=== PATIENT | female | born 1940 | race Hispanic/Latino ===

== ENCOUNTER → 2017-02-09 | Outpatient (CLI) | payer OTHER ==
[~2017-02-09] MED LIST: ACETAMINOPHEN325 M1 PO; ARTIFICIAL TEA1 EACH TOP; ASCORBIC ACID500 MG PO; CLONIDINE HCL0.1 MG PO; CYPROHEPTADINE H4 MG PO; DIPHENHYDRAMINE25 M2 PO; FEOSOL325 MG PO; FERROUS SULFAT325 MG PO; FUROSEMIDE40 MG PO; GLIPIZIDE5 MG PO; IPRATROPIU0.2 MG/1 M NEB; LACTULOSE20 GM/30 M PO; LEVALBUTER0.63 MG/3 NEB; LISINOPRIL2.5 MG PO; MECLIZINE HCL12.5 MG PO; NAPROXEN250 MG PO; NEOMYCIN SULFA500 MG PO; NIFEDIPINE ER30 M1 PO; NITRO-BID1 GM TOP; NOVOLOG100 UNIT/1; NYSTATIN1 EAC1 TOP; PEPCID20 MG PO; POTASSIUM CHLO10 ME1 PO; PROMACTA25 MG PO; PROMETHAZINE HC25 M1 PO; REMERON15 M1 PO; SPIRONOLACTONE25 MG PO; THIAMINE HCL100 MG PO; VITAMIN C500 M1 PO; ZINC OXIDE56.7 GM TOP
== END ==
LOC: NPA 12:00
DX: R69 Illness, unspecified (principal)

== ENCOUNTER → 2017-02-11 | Outpatient (CLI) | payer OTHER ==
[2017-02-12 13:11] LABS: BACTERIA,URINE RARE /HPF; BILIRUBIN,URINE NEGATIVE (NEGATIVE); CLARITY,URINE CLEAR (CLEAR); COLOR,URINE YELLOW (YELLOW); EPITHELIAL CELLS,URINE RARE /LPF; KETONES,URINE NEGATIVE (NEGATIVE); LEUKOCYTE ESTERASE ,URINE NEGATIVE (NEGATIVE); NITRITE,URINE NEGATIVE (NEGATIVE); PROTEIN,URINE DIPSTICK NEGATIVE (NEGATIVE); RBC,URINE 0-5 /HPF (0-5); URINE UROBILINOGEN 0.2 mg/dL (0.2 - 1); WBC,URINE (MAN) 0-5 /HPF (0-5); YEAST,URINE FEW
== END ==
LOC: NPA 18:00
DX: R69 Illness, unspecified (principal)
CPT/HCPCS: 81001; 87086

== ENCOUNTER → 2017-03-15 | Outpatient (CLI) | payer OTHER | LOC: NPA 11:00 | PROVIDERS: ATTEND Internal Medicine | DX: Z02.89 Encounter for other administrative examinations (principal) ==

== ENCOUNTER → 2017-03-16 | Outpatient (CLI) | payer OTHER ==
[2017-03-16 15:49] LABS: ANION GAP 8.9 mmol/L (8-16); CREATININE, SERUM 1.4 mg/dL (0.57-1.11); POTASSIUM 3.9 mmol/L (3.5-5.1)
[2017-03-16 15:50] LABS: CALCIUM 8.7 mg/dL (8.4-10.2)
[2017-03-16 15:57] LABS: BASOPHILS % 0.4 % (0.0-1.0); EOSINOPHILS # (AUTO) 0.1 (0.0-0.4); LYMPHOCYTES # (AUTO) 0.6 (1.0-3.2); LYMPHOCYTES % 28.2 % (18.0-39.1); MEAN CORPUSCULAR HEMOGLOBIN 33.5 pg (28-32); MEAN CORPUSCULAR HGB CONC 34.3 g/dL (31-35); MEAN CORPUSCULAR VOLUME 97.7 fL (81-99); MONOCYTES # (AUTO) 0.2 (0.2-0.8); MONOCYTES % 9.3 % (4.4-11.3); NEUTROPHILS # (AUTO) 1.3 (2.1-6.9); NEUTROPHILS % 57.7 % (38.7-80.0); RED BLOOD COUNT 2.18 x10e6/uL (3.6-5.1); RED CELL DISTRIBUTION WIDTH 17.2 % (11.7-14.4)
[2017-03-16 16:07] LABS: HEMATOCRIT 21.3 % (34.2-44.1); HEMOGLOBIN 7.3 g/dL (12.0-16.0); PLATELET COUNT 39 x10e3/uL (140-360)
== END ==
LOC: NPA 10:00
PROVIDERS: ATTEND Internal Medicine
DX: Z02.89 Encounter for other administrative examinations (principal)
CPT/HCPCS: 36415; 80048; 85025

== ENCOUNTER 2017-03-23 18:25 | Inpatient (IN) | payer MEDICARE ==
[~2017-03-23] VITALS: Ht 154.9 cm; Wt 71.7 kg
[2017-03-23] MEDS ORDERED: PANTOPRAZOLE 40 MG 10ML VIAL IV STA (19:47)
[2017-03-23] MEDS ORDERED: ONDANSETRON HCL INJ 2 MG/ML VIAL IV STA (19:47)
[2017-03-23] MEDS ORDERED: FUROSEMIDE INJ 10 MG/ML 2 ML VIAL IV PRN (20:00)
[2017-03-23] MEDS ORDERED: OCTREOTIDE ACETATE 0.05 MG/ML AMP IV ONE (20:00)
[2017-03-23] MEDS ORDERED: SODIUM CHLORIDE 0.9% 250ML 250 ML IV ONE (20:00)
--- NOTE | 2017-03-23 20:04 | Diagnostic Imaging Report ---
Examination: Single AP view of the chest. COMPARISON: None. INDICATION: Hypertension, diabetes and seizures. Blood transfusion. DISCUSSION: Lines/tubes: Left approximate PICC with distal tip projected on the expected location of the left innominate vein. Lungs: The lungs are suboptimally inflated. Increased density in the lower left thorax suggestive of a small volume pleural effusion and left basilar subsegmental atelectasis. Mild right basilar subsegmental atelectasis. Pleura: There is no right pleural effusion or pneumothorax. Heart and mediastinum: Cardiomediastinal silhouette is unremarkable. Mild prominence of the central pulmonary vasculature bilaterally. Bones and soft tissues: No acute bony abnormalities. Degenerative changes in the thoracic spine. IMPRESSION: 1. Small left pleural effusion and left basilar subsegmental atelectasis. Signed by: Dr. Leticia Nicole M.D. on 03/23/2017 8:00 PM
[2017-03-23] MEDS ORDERED: DIATRIZOATE MEGL/DIATRIZOA SOD 30 ML BTL PO ONE (20:11)
[2017-03-23 20:30] LABS: BASOPHILS % 0.3 % (0.0-1.0); EOSINOPHILS # (AUTO) 0.1 (0.0-0.4); EOSINOPHILS % 3.4 % (0.0-6.0); HEMATOCRIT 24.8 % (34.2-44.1); HEMOGLOBIN 8.8 g/dL (12.0-16.0); LYMPHOCYTES # (AUTO) 0.7 (1.0-3.2); LYMPHOCYTES % 23.8 % (18.0-39.1); MEAN CORPUSCULAR HEMOGLOBIN 34.4 pg (28-32); MEAN CORPUSCULAR HGB CONC 35.5 g/dL (31-35); MEAN CORPUSCULAR VOLUME 96.9 fL (81-99); MONOCYTES # (AUTO) 0.3 (0.2-0.8); MONOCYTES % 11.7 % (4.4-11.3); NEUTROPHILS # (AUTO) 1.7 (2.1-6.9); NEUTROPHILS % 60.1 % (38.7-80.0); RED BLOOD COUNT 2.56 x10e6/uL (3.6-5.1); RED CELL DISTRIBUTION WIDTH 16.5 % (11.7-14.4)
[2017-03-23 20:32] LABS: PLATELET COUNT 55 x10e3/uL (140-360)
[2017-03-23 20:43] LABS: INR 1.41; PARTIAL THROMBOPLASTIN TIME 36.7 seconds (23.8-35.5)
[2017-03-23 20:53] LABS: ALBUMIN 2.3 g/dL (3.5-5.0); ALBUMIN/GLOBULIN RATIO 0.8 (0.8-2.0); ANION GAP 13.3 mmol/L (8-16); CALCIUM 8.5 mg/dL (8.4-10.2); CREATININE, SERUM 3.29 mg/dL (0.57-1.11); POTASSIUM 4.3 mmol/L (3.5-5.1)
[2017-03-23 21:00] LABS: CREATINE KINASE MB 0.8 ng/mL (0.00-5.00)
[2017-03-23] MEDS: OCTREOTIDE ACETATE 500 MCG in SODIUM CHLORIDE 0.9% 250ML 250 ML IV SCH (21:24)
--- NOTE | 2017-03-23 22:05 | Diagnostic Imaging Report ---
EXAM: CT ABDOMEN AND PELVIS without IV CONTRAST DATE: 03/23/2017 7:47 PM Time stamp on Exam: 2123 hours INDICATION: Abdominal pain, distention, ascites COMPARISON: None TECHNIQUE: The abdomen and pelvis were scanned using a multidetector helical scanner. Coronal and sagittal reformations were obtained. Routine protocol performed. IV Contrast: None Oral Contrast: Gastrografin CTDIvol has been reviewed. It is below the limits set by the Radiation Protocol Committee (RPC). FINDINGS: LOWER THORAX: Bibasilar atelectasis and small bilateral layering pleural effusions. LIVER: Small cirrhotic appearing liver. BILIARY: Cholelithiasis. No ductal dilation. SPLEEN: Splenomegaly PANCREAS: No masses ADRENALS: No nodules RIGHT KIDNEY: No nephroureterolithiasis or hydronephrosis. LEFT KIDNEY: No nephroureterolithiasis or hydronephrosis. GI TRACT: Nonspecific gastric wall thickening, may be due to underdistention or portal hypertension. No bowel obstruction. VESSELS: Moderate atherosclerotic changes of the abdominal aorta without aneurysm. Suspected enlarged portal system. Limited evaluation of the vessels without IV contrast. PERITONEUM/RETROPERITONEUM: Moderate volume ascites throughout the abdomen and pelvis. LYMPH NODES: Limited evaluation. No bulky adenopathy. REPRODUCTIVE ORGANS: Normal BLADDER: Decompressed with Olivier catheter. SOFT TISSUES: Anasarca BONES: No suspicious bone lesions. IMPRESSION: Cirrhosis with portal hypertension and moderate volume ascites. Signed by: Dr. Page Hernandez M.D. on 03/23/2017 10:02 PM
[2017-03-23] MEDS ORDERED: SODIUM CHLORIDE 0.9% 250ML 500 ML ONE (23:21)
[2017-03-23] MEDS ORDERED: PHYTONADIONE 10 MG/ML AMP PO ONE (23:30)
[2017-03-23] MEDS ORDERED: DEXTROSE 50% SYRINGE 50 ML IV PRN (23:30)
[2017-03-23 23:40] LABS: BILIRUBIN,URINE NEGATIVE (NEGATIVE); KETONES,URINE NEGATIVE (NEGATIVE); LEUKOCYTE ESTERASE ,URINE 2+ (NEGATIVE); NITRITE,URINE NEGATIVE (NEGATIVE); URINE UROBILINOGEN 0.2 mg/dL (0.2 - 1)
[2017-03-23 23:42] LABS: CLARITY,URINE CLOUDY (CLEAR); COLOR,URINE YELLOW (YELLOW); PROTEIN,URINE DIPSTICK 1+ (NEGATIVE)
[2017-03-23 23:47] LABS: BACTERIA,URINE MODERATE /HPF; EPITHELIAL CELLS,URINE FEW /LPF; YEAST,URINE MANY
[2017-03-24] MEDS: OCTREOTIDE ACETATE 500 MCG in SODIUM CHLORIDE 0.9% 250ML 250 ML IV SCH ×2 (07:29→17:05)
[2017-03-24] MEDS: INSULIN REGULAR, HUMAN 100 UNIT/1 ML 3ML VIAL SQ SCH ×4 (08:43→21:59)
[2017-03-24] MEDS: PANTOPRAZOLE 40 MG 10ML VIAL IV SCH ×2 (09:22→21:59)
[2017-03-24 12:09] LABS: BASOPHILS % 0.4 % (0.0-1.0); EOSINOPHILS # (AUTO) 0.1 (0.0-0.4); HEMATOCRIT 29.1 % (34.2-44.1); HEMOGLOBIN 10.3 g/dL (12.0-16.0); LYMPHOCYTES # (AUTO) 0.5 (1.0-3.2); LYMPHOCYTES % 17.6 % (18.0-39.1); MEAN CORPUSCULAR HEMOGLOBIN 33.4 pg (28-32); MEAN CORPUSCULAR HGB CONC 35.4 g/dL (31-35); MEAN CORPUSCULAR VOLUME 94.5 fL (81-99); MONOCYTES # (AUTO) 0.3 (0.2-0.8); MONOCYTES % 10.1 % (4.4-11.3); NEUTROPHILS # (AUTO) 1.8 (2.1-6.9); NEUTROPHILS % 68.2 % (38.7-80.0); RED BLOOD COUNT 3.08 x10e6/uL (3.6-5.1); RED CELL DISTRIBUTION WIDTH 16.5 % (11.7-14.4)
[2017-03-24 12:16] LABS: PLATELET COUNT 39 x10e3/uL (140-360)
[2017-03-24 12:19] LABS: INR 1.43; PROTHROMBIN TIME 18.2 seconds (11.9-14.5)
[2017-03-24 12:20] LABS: PARTIAL THROMBOPLASTIN TIME 35.4 seconds (23.8-35.5)
[2017-03-24 12:39] LABS: ALBUMIN 2.3 g/dL (3.5-5.0); ALBUMIN/GLOBULIN RATIO 0.9 (0.8-2.0); ANION GAP 13.3 mmol/L (8-16); CALCIUM 8.6 mg/dL (8.4-10.2); CREATININE, SERUM 2.99 mg/dL (0.57-1.11); POTASSIUM 4.3 mmol/L (3.5-5.1)
[2017-03-24 12:46] LABS: CREATINE KINASE MB 1.1 ng/mL (0.00-5.00)
[2017-03-24 18:27] LABS: BASOPHILS % 0.4 % (0.0-1.0); EOSINOPHILS # (AUTO) 0.1 (0.0-0.4); EOSINOPHILS % 3.3 % (0.0-6.0); HEMATOCRIT 27.8 % (34.2-44.1); LYMPHOCYTES # (AUTO) 0.5 (1.0-3.2); LYMPHOCYTES % 22.6 % (18.0-39.1); MEAN CORPUSCULAR HEMOGLOBIN 33.4 pg (28-32); MONOCYTES # (AUTO) 0.2 (0.2-0.8); NEUTROPHILS # (AUTO) 1.5 (2.1-6.9); NEUTROPHILS % 63.3 % (38.7-80.0); RED BLOOD COUNT 2.99 x10e6/uL (3.6-5.1); RED CELL DISTRIBUTION WIDTH 16.6 % (11.7-14.4)
[2017-03-24 18:33] LABS: PLATELET COUNT 44 x10e3/uL (140-360)
[2017-03-24 18:48] LABS: CREATINE KINASE MB 0.9 ng/mL (0.00-5.00)
[2017-03-24] MEDS ORDERED: CEFTRIAXONE SOD 1 GM/NS 50 ML 50 ML IV SCH (19:30)
[2017-03-24 20:42] LABS: ALBUMIN 2.2 g/dL (3.5-5.0); ALBUMIN/GLOBULIN RATIO 0.8 (0.8-2.0); ANION GAP 14.3 mmol/L (8-16); CALCIUM 8.5 mg/dL (8.4-10.2); CREATININE, SERUM 3.02 mg/dL (0.57-1.11); POTASSIUM 4.3 mmol/L (3.5-5.1)
--- NOTE | 2017-03-24 20:53 | History and Physical ---
PRIMARY CARE PROVIDER: Dr. Jeffy Choi. CHIEF COMPLAINT: Melena, generalized weakness and anemia that was found by her primary care physician in the clinic 3 days ago. HISTORY OF PRESENT ILLNESS: Ms. Rose is a 77-year-old lady with known cirrhosis, of unknown etiology who went to the clinic 3 days ago and was called today and told that she was anemic. She also complains of melena and generalized weakness, and was found to have a hemoglobin of 8.8. She has longstanding cirrhosis of unknown etiology as noted. REVIEW OF SYSTEMS: She denies fever, chills or weight loss. She has had generalized weakness. She denies sinus congestion or sore throat. She denies chest pain or palpitations. Denies shortness of breath, wheezing or cough. She denies abdominal pain, nausea or vomiting. She has had melena. She denies hematemesis. She denies dysuria or flank pain. Denies rash or pruritus. She denies joint pain or swelling. She denies active bleeding or bruising. She denies headache, vertigo or loss of consciousness. She denies depression, agitation, homicidal or suicidal ideation. PAST MEDICAL HISTORY: Significant for longstanding hypertension and type 2 diabetes and cirrhosis of unknown etiology. PAST SURGICAL HISTORY: She denies any surgery history. REGULAR MEDICATIONS: Tylenol as needed. Vitamin C 500 twice a day. Clonidine 0.1 mg only as needed for blood pressure greater than 160. Diphenhydramine for itching. Pepcid 20 mg twice a day. Ferrous sulfate 325 mg twice a day. Glipizide 5 mg daily. Insulin. Humalog on sliding scale. Atrovent nebulizer treatments. Xopenex nebulizer treatments both q.4 to 6 hours. Meclizine as needed for dizziness. Naprosyn 500 mg daily. Nitro-bid paste topically as needed. Potassium 10 mEq daily. Thiamine 100 mg twice a day. Zinc oxide ointment. Promacta 25 mg daily, not sure what that is. Mirtazapine 15 mg at bedtime. Lasix 20 mg daily. Spironolactone 25 mg daily. Nifedipine ER 60 mg daily. Lisinopril 5 mg twice a day and lactulose 30 mL twice a day. ALLERGIES: NO KNOWN DRUG ALLERGIES. FAMILY HISTORY: Remarkable for hypertension and diabetes. SOCIAL HISTORY: The patient is and speaks only [place]. She does not smoke, drink or use illegal drugs. She is generally independently functioning. PHYSICAL EXAM: PSYCHIATRIC: She is awake, alert and oriented times 3 with normal mood and affect. CONSTITUTIONAL: She has a normal body habitus and is in no acute distress. VITAL SIGNS: Blood pressure 152/62. Pulse 74 and regular. Respiratory rate 20. O2 sat 99%. Temperature 98.5. HEENT: Head is atraumatic. Her eyes are slightly jaundiced. Oropharynx is clear. NECK: Is supple with no mass or thyromegaly. LYMPHATIC SYSTEM: She has no palpable cervical, axillary or inguinal adenopathy. CARDIOVASCULAR: Her heart has a regular rate and rhythm without murmur or extra heart sounds. No carotid bruits. No peripheral edema. She has palpable dorsal pedal pulses. RESPIRATORY: Clear to auscultation and percussion with normal respiratory effort. GASTROINTESTINAL: Her abdomen is soft without organomegaly, masses or tenderness. Slightly distended with moderate amount of ascites. Has normal bowel sounds present. CUTANEOUS: Her skin is warm and dry to touch with no rash or skin breakdown. MUSCULOSKELETAL: Joints are normal alignment without erythema or swelling. No calf tenderness. NEUROLOGIC: Exam is nonfocal with intact cranial nerves and no motor or sensory deficits. DIAGNOSTIC STUDIES: Chest x-ray shows small left pleural effusion and left basilar atelectasis. CT scan the abdomen shows cirrhosis, portal hypertension and moderate ascites. Her UA has 6 to 10 red cells, 11 to 20 white cells and 2+ leukocyte esterase. Fecal occult blood test is positive. Lactic acid 11.7 which is normal. Magnesium 1.4. Ammonia 69 which is slightly elevated. Troponin 0.016 and 0.015 and BNP 168.8. Her CBC shows a white count of 2.9 with 60% neutrophils and 24% lymphocytes. Hemoglobin 8.8, hematocrit 24.8 and platelet count 55,000. Chemistry shows sodium 131. Potassium 4.3, chloride 103. CO2 19. Glucose 149. Creatinine 3.29, BUN 38 a GFR of 14. Calcium 8.5. Pro time is 18.2 with an INR 1.43. PTT 35.4 and her transaminases and bilirubin. Bilirubin is slightly elevated at 2.9. AST slightly elevated at 31, ALT normal 9, alkaline phosphatase 85 is normal. She had a fecal occult blood test that was grossly positive. IMPRESSION AND PLAN 1. Pancytopenia and anemia. Patient has received 2 units of blood and 2 units of fresh frozen plasma for coagulopathy. She has coagulopathy, and so 2 units of red cells and 2 units of fresh frozen plasma. 2. Upper GI bleed. The patient has been started on IV Protonix and octreotide drip and GI has been consulted for possible upper endoscopy. 3. Cirrhosis with ascites. Will continue patient on Lasix and spironolactone. 4. Hypertension. Will continue lisinopril and Procardia. 5. Type 2 diabetes. Will hold glipizide at this time and use sliding scale insulin alone. 6. Urinary tract infection. Will place the patient on IV Rocephin empirically pending culture results. 7. For prophylaxis the patient is on IV Protonix. She does not need DVT prophylaxis as she is already auto anticoagulated. Job#: [id number] GH
[2017-03-24] MEDS ORDERED: LISINOPRIL 2.5 MG TAB ONE (21:54)
[2017-03-24] MEDS: NIFEDIPINE CR 30 MG TAB PO SCH (21:59)
[2017-03-24] MEDS: LISINOPRIL 10 MG TAB PO SCH (21:59)
[2017-03-24] MEDS: CEFTRIAXONE SOD 1 GM VIAL IV SCH (21:59)
[2017-03-24] MEDS: LACTULOSE SYRUP 20 GM/30 ML UDC PO SCH (21:59)
[2017-03-25] VITALS (11 sets, daily range): BP systolic 102–147; BP diastolic 43–89
[2017-03-25 00:09] LABS: BASOPHILS % 0.4 % (0.0-1.0); EOSINOPHILS # (AUTO) 0.1 (0.0-0.4); EOSINOPHILS % 2.3 % (0.0-6.0); HEMATOCRIT 26.2 % (34.2-44.1); HEMOGLOBIN 9.3 g/dL (12.0-16.0); LYMPHOCYTES # (AUTO) 0.7 (1.0-3.2); MEAN CORPUSCULAR HEMOGLOBIN 33.2 pg (28-32); MEAN CORPUSCULAR HGB CONC 35.5 g/dL (31-35); MEAN CORPUSCULAR VOLUME 93.6 fL (81-99); MONOCYTES # (AUTO) 0.3 (0.2-0.8); MONOCYTES % 9.5 % (4.4-11.3); NEUTROPHILS # (AUTO) 1.7 (2.1-6.9); NEUTROPHILS % 62.8 % (38.7-80.0); RED CELL DISTRIBUTION WIDTH 16.6 % (11.7-14.4)
[2017-03-25 00:10] LABS: PLATELET COUNT 41 x10e3/uL (140-360)
[2017-03-25] MEDS: OCTREOTIDE ACETATE 500 MCG in SODIUM CHLORIDE 0.9% 250ML 250 ML IV SCH ×3 (02:24→21:05)
[2017-03-25 06:18] LABS: BASOPHILS % 0.4 % (0.0-1.0); EOSINOPHILS # (AUTO) 0.1 (0.0-0.4); EOSINOPHILS % 3.4 % (0.0-6.0); HEMATOCRIT 26.1 % (34.2-44.1); HEMOGLOBIN 9.4 g/dL (12.0-16.0); LYMPHOCYTES # (AUTO) 0.6 (1.0-3.2); LYMPHOCYTES % 24.1 % (18.0-39.1); MEAN CORPUSCULAR HEMOGLOBIN 33.5 pg (28-32); MEAN CORPUSCULAR VOLUME 92.9 fL (81-99); MONOCYTES # (AUTO) 0.3 (0.2-0.8); MONOCYTES % 10.7 % (4.4-11.3); NEUTROPHILS # (AUTO) 1.6 (2.1-6.9); RED BLOOD COUNT 2.81 x10e6/uL (3.6-5.1); RED CELL DISTRIBUTION WIDTH 16.4 % (11.7-14.4)
[2017-03-25 06:23] LABS: PLATELET COUNT 38 x10e3/uL (140-360)
[2017-03-25 06:37] LABS: MAGNESIUM 1.2 MG/DL (1.3-2.1)
[2017-03-25 07:06] LABS: THYROID STIMULATING HORMONE 1.247 uIU/mL (0.350-4.940)
[2017-03-25] MEDS: INSULIN REGULAR, HUMAN 100 UNIT/1 ML 3ML VIAL SQ SCH ×4 (07:30→21:05)
[2017-03-25] MEDS: CEFTRIAXONE SOD 1 GM VIAL IV SCH ×2 (08:15→20:00)
[2017-03-25] MEDS: PANTOPRAZOLE 40 MG 10ML VIAL IV SCH ×2 (08:30→20:05)
[2017-03-25] MEDS ORDERED: FUROSEMIDE 20 MG TAB PO SCH (09:00)
[2017-03-25] MEDS: LACTULOSE SYRUP 20 GM/30 ML UDC PO SCH ×2 (09:00→17:00)
[2017-03-25] MEDS: LISINOPRIL 10 MG TAB PO SCH (09:00)
[2017-03-25] MEDS: SPIRONOLACTONE 25 MG TAB PO SCH (09:00)
[2017-03-25] MEDS: NIFEDIPINE CR 30 MG TAB PO SCH (09:00)
[2017-03-25] MEDS ORDERED: PHYTONADIONE 10 MG/ML AMP IV ONE (11:30)
[2017-03-25] MEDS ORDERED: PHYTONADIONE 10MG/ML 20 MG in SODIUM CHLORIDE 0.9% 50ML 50 ML IV ONE (12:00)
[2017-03-25] MEDS ORDERED: SODIUM CHLORIDE 0.9% 250ML 250 ML ONE (16:15)
[2017-03-25] MEDS: SODIUM CHLORIDE 0.9% 1000ML 1,000 ML IV SCH (20:00)
[2017-03-26] VITALS (12 sets, daily range): BP systolic 120–152; BP diastolic 48–60
[2017-03-26 05:32] LABS: BASOPHILS % 0.4 % (0.0-1.0); EOSINOPHILS # (AUTO) 0.1 (0.0-0.4); EOSINOPHILS % 2.5 % (0.0-6.0); HEMATOCRIT 23.5 % (34.2-44.1); HEMOGLOBIN 8.3 g/dL (12.0-16.0); LYMPHOCYTES # (AUTO) 0.6 (1.0-3.2); LYMPHOCYTES % 25.8 % (18.0-39.1); MEAN CORPUSCULAR HEMOGLOBIN 32.7 pg (28-32); MEAN CORPUSCULAR HGB CONC 35.3 g/dL (31-35); MEAN CORPUSCULAR VOLUME 92.5 fL (81-99); MONOCYTES # (AUTO) 0.3 (0.2-0.8); MONOCYTES % 10.8 % (4.4-11.3); NEUTROPHILS # (AUTO) 1.4 (2.1-6.9); NEUTROPHILS % 60.1 % (38.7-80.0); RED BLOOD COUNT 2.54 x10e6/uL (3.6-5.1); RED CELL DISTRIBUTION WIDTH 15.7 % (11.7-14.4)
[2017-03-26 05:33] LABS: PLATELET COUNT 42 x10e3/uL (140-360)
[2017-03-26 05:46] LABS: ANION GAP 13.5 mmol/L (8-16); CALCIUM 8.3 mg/dL (8.4-10.2); CREATININE, SERUM 2.91 mg/dL (0.57-1.11); POTASSIUM 3.5 mmol/L (3.5-5.1)
[2017-03-26 05:56] LABS: MAGNESIUM 1.1 MG/DL (1.3-2.1)
[2017-03-26] MEDS: MAGNESIUM SULFATE 2GM/50ML 50 ML IV SCH ×2 (06:26→08:18)
[2017-03-26] MEDS ORDERED: MAGNESIUM SULFATE 2GM/50ML 100 ML IV ONE (06:30)
[2017-03-26] MEDS: SODIUM CHLORIDE 0.9% 1000ML 1,000 ML IV SCH (06:50)
[2017-03-26] MEDS: INSULIN REGULAR, HUMAN 100 UNIT/1 ML 3ML VIAL SQ SCH ×4 (07:19→22:20)
[2017-03-26] MEDS: OCTREOTIDE ACETATE 500 MCG in SODIUM CHLORIDE 0.9% 250ML 250 ML IV SCH ×3 (07:36→22:16)
[2017-03-26] MEDS: CEFTRIAXONE SOD 1 GM VIAL IV SCH ×2 (08:18→20:46)
[2017-03-26] MEDS: SPIRONOLACTONE 25 MG TAB PO SCH (09:16)
[2017-03-26] MEDS: LACTULOSE SYRUP 20 GM/30 ML UDC PO SCH ×2 (09:16→17:00)
[2017-03-26] MEDS: PANTOPRAZOLE 40 MG 10ML VIAL IV SCH ×2 (09:16→20:46)
[2017-03-26] MEDS: NIFEDIPINE CR 30 MG TAB PO SCH (09:17)
[2017-03-26] MEDS ORDERED: POTASSIUM CHLORIDE 20MEQ/100ML 100 ML IV ONE (11:00)
[2017-03-26] MEDS ORDERED: FUROSEMIDE INJ 10 MG/ML 2 ML VIAL IV ONE (11:00)
[2017-03-26] MEDS: FLUCONAZOLE 100 MG/NS 50 ML 50 ML IV SCH (12:46)
[2017-03-26] MEDS ORDERED: SODIUM CHLORIDE 0.9% 250ML 250 ML ONE (16:22)
[2017-03-26] MEDS ORDERED: LIDOCAINE HCL 2% LOCAL INJ 5 ML SDV VIAL INJ ONE (18:21)
[2017-03-26] MEDS ORDERED: PROPOFOL IV EMULSION 10 MG/ML 50 ML VIAL ONE (18:21)
--- NOTE | 2017-03-26 19:49 | Operative Report ---
DATE OF PROCEDURE: March 26, 2017 REFERRING PHYSICIAN: Dr. Teresa Uribe. PROCEDURE PERFORMED: EGD with biopsies. INDICATIONS FOR EGD: Upper abdominal pain, anemia, history of melena. MEDICATION: Patient was done under MAC. Please see anesthesiologist's note. PROCEDURE: With the patient in left lateral decubitus position, flexible fiberoptic Olympus gastroscope was introduced into the esophagus under direct visualization without any difficulty. There was some patchy erythema noted in the distal esophagus. The scope was then advanced with ease into the stomach traversing a small hiatal hernia. Mucosa overlying the antrum and the body revealed some diffuse erythema and mild to moderate edema and biopsies were obtained and sent to stain for H. pylori. Pylorus appeared to be of normal contour and shape. Was intubated with ease and the scope was advanced all the way to the 2nd portion of the duodenum. The scope was then withdrawn slowly. Mucosa overlying the proximal 2nd portion and the duodenal bulb appeared to be within normal limits. The scope was then withdrawn back into the stomach and retroflexed and mucosa overlying the fundus and the cardia appeared to be within normal limits. The scope was then straightened out. The stomach was decompressed. Scope was subsequently withdrawn. Patient tolerated the procedure well. IMPRESSION: 1. Mild distal esophagitis. 2. Small hiatal hernia. 3. Gastritis biopsied. Biopsy sent stain for H. pylori. PLAN: Follow up histology. Initiate Protonix 40 mg 1 p.o. a.c. b.i.d. Patient will need her colon evaluated as the EGD findings do not explain the degree of her anemia. Job#: [id number] cc:TERESA URIBE MD
[2017-03-27] VITALS (11 sets, daily range): BP systolic 111–134; BP diastolic 46–76
[2017-03-27 07:10] LABS: BASOPHILS % 0.2 % (0.0-1.0); EOSINOPHILS % 0.7 % (0.0-6.0); HEMATOCRIT 24.5 % (34.2-44.1); HEMOGLOBIN 8.6 g/dL (12.0-16.0); LYMPHOCYTES # (AUTO) 0.5 (1.0-3.2); LYMPHOCYTES % 10.7 % (18.0-39.1); MEAN CORPUSCULAR HEMOGLOBIN 32.6 pg (28-32); MEAN CORPUSCULAR HGB CONC 35.1 g/dL (31-35); MEAN CORPUSCULAR VOLUME 92.8 fL (81-99); MONOCYTES # (AUTO) 0.4 (0.2-0.8); MONOCYTES % 9.2 % (4.4-11.3); NEUTROPHILS # (AUTO) 3.5 (2.1-6.9); RED BLOOD COUNT 2.64 x10e6/uL (3.6-5.1); RED CELL DISTRIBUTION WIDTH 15.7 % (11.7-14.4)
[2017-03-27 07:21] LABS: PLATELET COUNT 39 x10e3/uL (140-360)
[2017-03-27 07:30] LABS: ANION GAP 14.7 mmol/L (8-16); CALCIUM 8.5 mg/dL (8.4-10.2); CREATININE, SERUM 3.03 mg/dL (0.57-1.11); MAGNESIUM 1.8 MG/DL (1.3-2.1); POTASSIUM 3.7 mmol/L (3.5-5.1)
[2017-03-27] MEDS: CEFTRIAXONE SOD 1 GM VIAL IV SCH (08:03)
[2017-03-27] MEDS: INSULIN REGULAR, HUMAN 100 UNIT/1 ML 3ML VIAL SQ SCH ×4 (08:04→21:00)
[2017-03-27] MEDS: LACTULOSE SYRUP 20 GM/30 ML UDC PO SCH ×2 (08:38→19:44)
[2017-03-27] MEDS: PANTOPRAZOLE 40 MG 10ML VIAL IV SCH ×2 (08:38→22:04)
[2017-03-27] MEDS: SPIRONOLACTONE 25 MG TAB PO SCH (08:38)
[2017-03-27] MEDS: NIFEDIPINE CR 30 MG TAB PO SCH (08:39)
[2017-03-27] MEDS ORDERED: SODIUM CHLORIDE 0.9% 250ML 250 ML IV ONE (09:00)
[2017-03-27 09:27] LABS: INR 1.43; PROTHROMBIN TIME 18.2 seconds (11.9-14.5)
[2017-03-27 09:54] LABS: FERRITIN 852.1 ng/mL (4.63-204.00)
[2017-03-27] MEDS: FLUCONAZOLE 100 MG/NS 50 ML 50 ML IV SCH (12:52)
[2017-03-27] MEDS: FUROSEMIDE INJ 10 MG/ML 2 ML VIAL IV PRN ×2 (13:00→16:35)
--- NOTE | 2017-03-27 13:16 | Consultation ---
DATE OF CONSULTATION: March 27, 2017 ATTENDING PHYSICIAN: Dr. Uribe. Thank you, Dr. Uribe, for this consultation. REASON FOR CONSULTATION: Pancytopenia, anemia, and thrombocytopenia. HPI: A 77-year-old female with a past medical history of chronic liver disease associated with portal hypertension, anemia, and persistent thrombocytopenia. She is currently in hospital with worsening generalized weakness and melena. At admission, the patient has hemoglobin of 8.8. Patient feels fatigued, lethargic and tired. She had persistent anemia and thrombocytopenia during her hospital stay. She was also coagulopathic. She denies any other symptom. PAST MEDICAL HISTORY: Chronic liver disease, thrombocytopenia, and anemia. ALLERGIES: NKDA. MEDICATIONS: List reviewed. FAMILY HISTORY: Remarkable for hypertension and diabetes. SOCIAL HISTORY: Patient is . No smoking, alcohol or drugs. REVIEW OF SYSTEMS: A 12-point review of systems as per HPI. PHYSICAL EXAMINATION GENERAL: Alert, awake, communicative. HEENT: Normocephalic, atraumatic. Sclerae pink. Conjunctivae clear. NECK: Supple. CHEST: Clear to auscultation. CARDIOVASCULAR: Regular rate and rhythm. EXTREMITIES: No clubbing, cyanosis or edema. SOFTWARE PROGRAMMER: Grossly intact. LABS AND IMAGING: Reviewed. ASSESSMENT AND PLAN: Patient with a history of multiple medical conditions. I am currently following for; 1. Anemia. Patient has chronic liver disease with portal hypertension. Patient's upper GI endoscopy showed mild distal gastroesophagitis with no active bleeding. Patient has persistent anemia and thrombocytopenia, hemoglobin trending downward. Recommendation: 1 unit of packed RBC, 1 unit of platelets transfusion. We will also monitor coagulation profile very closely. Last INR was 1.43 at admission. At this point, we will continue remaining care. Patient will benefit with iron treatment after transfusion. We will monitor patient closely. 2. Hypertension, patient currently on lisinopril. Current blood pressure is controlled. 3. Diabetes. Patient is currently on insulin scale. We will monitor blood glucose closely. 4. We will continue remaining care. We will follow patient. Job#: [id number] KHARI
[2017-03-27] MEDS: IRON SUCROSE 100 MG in SODIUM CHLORIDE 0.9% 100 ML 100 ML IV SCH (17:30)
[2017-03-28 06:17] VITALS: BP 110/46
[2017-03-28 07:46] VITALS: BP 115/48
[2017-03-28 07:57] LABS: BASOPHILS % 0.4 % (0.0-1.0); EOSINOPHILS # (AUTO) 0.1 (0.0-0.4); EOSINOPHILS % 1.8 % (0.0-6.0); HEMATOCRIT 28.6 % (34.2-44.1); HEMOGLOBIN 10.3 g/dL (12.0-16.0); LYMPHOCYTES # (AUTO) 0.7 (1.0-3.2); LYMPHOCYTES % 13.8 % (18.0-39.1); MEAN CORPUSCULAR VOLUME 88.8 fL (81-99); MONOCYTES # (AUTO) 0.5 (0.2-0.8); MONOCYTES % 9.8 % (4.4-11.3); NEUTROPHILS # (AUTO) 3.8 (2.1-6.9); NEUTROPHILS % 73.8 % (38.7-80.0); RED BLOOD COUNT 3.22 x10e6/uL (3.6-5.1); RED CELL DISTRIBUTION WIDTH 17.3 % (11.7-14.4)
[2017-03-28] MEDS: INSULIN REGULAR, HUMAN 100 UNIT/1 ML 3ML VIAL SQ SCH ×4 (07:59→21:00)
[2017-03-28 08:09] LABS: PLATELET COUNT 37 x10e3/uL (140-360)
[2017-03-28 08:30] LABS: ANION GAP 15.1 mmol/L (8-16); CALCIUM 8.5 mg/dL (8.4-10.2); CREATININE, SERUM 3.15 mg/dL (0.57-1.11); MAGNESIUM 1.6 MG/DL (1.3-2.1); POTASSIUM 3.1 mmol/L (3.5-5.1)
[2017-03-28 08:36] VITALS: BP 115/48
[2017-03-28] MEDS: LACTULOSE SYRUP 20 GM/30 ML UDC PO SCH ×2 (08:42→17:00)
[2017-03-28] MEDS: NIFEDIPINE CR 30 MG TAB PO SCH (08:42)
[2017-03-28] MEDS: SPIRONOLACTONE 25 MG TAB PO SCH (08:42)
[2017-03-28] MEDS: PANTOPRAZOLE 40 MG 10ML VIAL IV SCH ×2 (08:42→21:16)
[2017-03-28] MEDS: IRON SUCROSE 100 MG in SODIUM CHLORIDE 0.9% 100 ML 100 ML IV SCH (12:09)
[2017-03-28] MEDS: FLUCONAZOLE 100 MG/NS 50 ML 50 ML IV SCH (12:39)
[2017-03-28 13:00] VITALS: BP 106/50
[2017-03-28] MEDS ORDERED: POTASSIUM CHLORIDE 100 ML IV ONE (15:30)
[2017-03-28] MEDS: MEGACE 400MG/ 10ML CUP PO SCH (17:30)
[2017-03-29] VITALS (7 sets, daily range): BP systolic 122–133; BP diastolic 53–68
[2017-03-29 07:12] LABS: BASOPHILS % 0.8 % (0.0-1.0); EOSINOPHILS # (AUTO) 0.1 (0.0-0.4); EOSINOPHILS % 2.8 % (0.0-6.0); HEMATOCRIT 30.1 % (34.2-44.1); HEMOGLOBIN 10.7 g/dL (12.0-16.0); LYMPHOCYTES # (AUTO) 1.5 (1.0-3.2); LYMPHOCYTES % 29.1 % (18.0-39.1); MEAN CORPUSCULAR HEMOGLOBIN 31.8 pg (28-32); MEAN CORPUSCULAR HGB CONC 35.5 g/dL (31-35); MEAN CORPUSCULAR VOLUME 89.6 fL (81-99); MONOCYTES # (AUTO) 0.7 (0.2-0.8); MONOCYTES % 13.3 % (4.4-11.3); NEUTROPHILS # (AUTO) 2.7 (2.1-6.9); NEUTROPHILS % 53.8 % (38.7-80.0); RED BLOOD COUNT 3.36 x10e6/uL (3.6-5.1); RED CELL DISTRIBUTION WIDTH 17.1 % (11.7-14.4)
[2017-03-29 07:21] LABS: PLATELET COUNT 41 x10e3/uL (140-360)
[2017-03-29 07:23] LABS: ALBUMIN 2.3 g/dL (3.5-5.0); ALBUMIN/GLOBULIN RATIO 0.8 (0.8-2.0); ALKALINE PHOSPHATASE 74 IU/L (40-150); ANION GAP 15.2 mmol/L (8-16); BLOOD UREA NITROGEN 39 mg/dL (7-26); BUN/CREATININE RATIO 13 (6-25); CALCIUM 8.7 mg/dL (8.4-10.2); CARBON DIOXIDE 19 mmol/L (22-29); CHLORIDE 108 mmol/L (98-107); CREATININE, SERUM 2.97 mg/dL (0.57-1.11); EST GLOMERULAR FILTRATION RATE 15 ML/MIN (60-); GLUCOSE 170 mg/dL (74-118); POTASSIUM 3.2 mmol/L (3.5-5.1); SODIUM 139 mmol/L (136-145)
[2017-03-29 07:24] LABS: ALANINE AMINOTRANSFERASE < 6 IU/L (0-55)
[2017-03-29] MEDS: INSULIN REGULAR, HUMAN 100 UNIT/1 ML 3ML VIAL SQ SCH ×4 (07:30→21:00)
[2017-03-29] MEDS: MEGACE 400MG/ 10ML CUP PO SCH ×2 (09:00→17:00)
[2017-03-29] MEDS ORDERED: MEGACE 400MG/ 10ML CUP PO SCH (09:00)
[2017-03-29] MEDS: NIFEDIPINE CR 30 MG TAB PO SCH (09:00)
[2017-03-29] MEDS: SPIRONOLACTONE 25 MG TAB PO SCH (09:00)
[2017-03-29] MEDS: LACTULOSE SYRUP 20 GM/30 ML UDC PO SCH ×2 (09:00→17:00)
--- NOTE | 2017-03-29 11:12 | Diagnostic Imaging Report ---
PROCEDURE:ABDOMINAL ULTRASOUND COMPARISON:None. INDICATION:Ascites TECHNIQUE:Romo scale and color Doppler ultrasound FINDINGS: The abdominal aorta, pancreas and inferior vena cava are not well seen secondary to ascites and bowel gas. Right liver span 11.6 cm. Nodular coarsened parenchymal echotexture. The portal vein is not conspicuous. Multiple calcified gallbladder stones. Wall thickness 4 mm. No sonographic Fritz sign. Common bile duct diameter 1.5 cm (questionable). Right kidney span: 10.6 cm Left kidney: Not seen by regional forester Spleen length 13 cm. Moderate to large volume ascites. CONCLUSION: 1. Cirrhotic liver morphology. 2. The splenic vein is enlarged. The portal vein could not be found by the regional forester, and may be thrombosed. Duplex ultrasound of the liver, or liver protocol MRI is recommended. 3. Cholelithiasis. Questionable 1.5 cm common bile duct (alternatively, thrombosed portal vein). No sonographic evidence of acute cholecystitis. 4. Moderate to large volume ascites. Dictated by: Oliver Cutler M.D. on 03/29/2017 at 11:21 Electronically approved by: Oliver Cutler M.D. on 03/29/2017 at 11:21
[2017-03-29] MEDS: PANTOPRAZOLE 40 MG 10ML VIAL IV SCH ×2 (12:26→21:11)
[2017-03-29] MEDS: IRON SUCROSE 100 MG in SODIUM CHLORIDE 0.9% 100 ML 100 ML IV SCH (12:26)
[2017-03-29] MEDS ORDERED: POTASSIUM CHLORIDE 20MEQ/100ML 200 ML IV ONE (13:30)
[2017-03-29] MEDS ORDERED: SODIUM CHLORIDE 0.9% 250ML 250 ML ONE (14:48)
[2017-03-30] VITALS (7 sets, daily range): BP systolic 124–148; BP diastolic 52–62
[2017-03-30 05:17] LABS: BASOPHILS % 0.6 % (0.0-1.0); EOSINOPHILS # (AUTO) 0.1 (0.0-0.4); EOSINOPHILS % 3.1 % (0.0-6.0); HEMATOCRIT 28.9 % (34.2-44.1); HEMOGLOBIN 10.1 g/dL (12.0-16.0); LYMPHOCYTES % 29.2 % (18.0-39.1); MEAN CORPUSCULAR HEMOGLOBIN 31.5 pg (28-32); MEAN CORPUSCULAR HGB CONC 34.9 g/dL (31-35); MONOCYTES # (AUTO) 0.4 (0.2-0.8); MONOCYTES % 12.4 % (4.4-11.3); NEUTROPHILS # (AUTO) 1.9 (2.1-6.9); NEUTROPHILS % 54.4 % (38.7-80.0); RED BLOOD COUNT 3.21 x10e6/uL (3.6-5.1); RED CELL DISTRIBUTION WIDTH 16.8 % (11.7-14.4)
[2017-03-30 05:22] LABS: PLATELET COUNT 34 x10e3/uL (140-360)
[2017-03-30 05:31] LABS: ANION GAP 13.4 mmol/L (8-16); CALCIUM 8.2 mg/dL (8.4-10.2); CREATININE, SERUM 2.65 mg/dL (0.57-1.11); POTASSIUM 3.4 mmol/L (3.5-5.1)
[2017-03-30] MEDS: INSULIN REGULAR, HUMAN 100 UNIT/1 ML 3ML VIAL SQ SCH ×4 (07:30→20:21)
--- NOTE | 2017-03-30 07:48 | Diagnostic Imaging Report ---
PROCEDURE: SMALL BOWEL SERIES Comparison: None. Indications: GI BLEED CIRRHOSIS Technique: Small bowel follow through exam was performed using oral barium. Preliminary image was obtained before administration of contrast and serial overhead images were obtained after administration of oral barium. Slow transit of contrast was noted. Total image obtained at 16.5 hours demonstrated contrast in the cecum. Findings: SMALL BOWEL FOLLOW THROUGH: Small bowel loops are normal in caliber and distribution. Spot compression views of the terminal ileum are normal. The transit time was abnormally increased. IMPRESSION: Slow transit of contrast through the small bowel. Otherwise, no acute radiographic abnormality. Dictated by: Nathaniel Walsh M.D. on 03/30/2017 at 7:57 Electronically approved by: Nathaniel Walsh M.D. on 03/30/2017 at 7:57
[2017-03-30] MEDS: MEGACE 400MG/ 10ML CUP PO SCH ×2 (08:05→17:36)
[2017-03-30] MEDS: SPIRONOLACTONE 25 MG TAB PO SCH (08:05)
[2017-03-30] MEDS: LACTULOSE SYRUP 20 GM/30 ML UDC PO SCH ×2 (08:05→17:36)
[2017-03-30] MEDS: NIFEDIPINE CR 30 MG TAB PO SCH (09:00)
--- NOTE | 2017-03-30 09:46 | Progress Note ---
DATE: March 30, 2017 Patient was seen and examined today. She appears comfortable. She is scheduled for paracentesis. Platelet count 34,000. Hemoglobin stable. PHYSICAL EXAMINATION GENERAL: Alert, awake and communicative. HEENT: Normocephalic and atraumatic. Sclerae pink. Conjunctivae clear. ABDOMEN: Distended. EXTREMITIES: No edema. LABS AND IMAGING: Reviewed. ASSESSMENT AND PLAN: Patient with a history of chronic liver disease, reported hypertension, pancytopenia. Patient is currently following with interventional radiologist. Scheduled for paracentesis. Current recommendation is to give platelets before procedure. Current hemoglobin stable. Continue close observation. Will monitor the patient closely. Job#: [id number] GABBY
--- NOTE | 2017-03-30 11:29 | Diagnostic Imaging Report ---
PROCEDURE:US GUIDED PARACENTESIS COMPARISON:None. INDICATIONS:Not provided. FINDINGS: After informed consent was obtained, focused abdominal ultrasound identified a safe entry route into the free ascitic fluid in the left lower quadrant of the abdomen. The overlying skin was prepped and draped in sterile fashion. Lidocaine 1% was used for local anesthesia. Under ultrasound guidance, a centesis needle was advanced into the ascitic fluid, the needle was removed and the catheter attached to vacuum bottle. 5750 cc of straw-colored ascitic fluid were aspirated. The catheter was removed. There was <1cc blood loss and no complications. Samples were sent to the laboratory for analysis. CONCLUSION: Uncomplicated ultrasound-guided paracentesis with removal of 5750 cc. Dictated by: Nathaniel Walsh M.D. on 03/30/2017 at 11:39 Electronically approved by: Nathaniel Walsh M.D. on 03/30/2017 at 11:39
[2017-03-30] MEDS: IRON SUCROSE 100 MG in SODIUM CHLORIDE 0.9% 100 ML 100 ML IV SCH (11:45)
[2017-03-30] MEDS: PANTOPRAZOLE 40 MG 10ML VIAL IV SCH ×2 (11:45→20:27)
[2017-03-30 14:11] LABS: BODY FLUID TYPE ASCITIES
[2017-03-30 14:12] LABS: BODY FLUID APPEARANCE SL.CLOUDY; BODY FLUID COLOR YELLOW
[2017-03-30 14:13] LABS: RBC,BODY FLUID 200 cells/uL; WBC,BODY FLUID 11 cells/uL
--- NOTE | 2017-03-30 16:01 | Diagnostic Imaging Report ---
EXAM: MRI of the abdomen without contrast INDICATION: Hepatic cirrhosis. Gastrointestinal bleed. COMPARISON: None. Correlation with CT abdomen dated 03/23/2017. TECHNIQUE: Multiplanar and multisequence imaging was performed of the abdomen. T1 and T2-weighted images were obtained with and without contrast. T1-weighted in and [id number] were also obtained. Intravenous contrast was withheld due to a low GFR. Discussion: Examination limited due to the lack of intravenous contrast and image degradation by breathing motion artifact. LOWER THORAX: Left pleural effusion and left basilar atelectasis. HEPATOBILIARY: Small nodular liver consistent with cirrhosis. Diffuse dilatation of the common bile duct particularly at its midportion measuring 1.9 cm on image 23 series 8. No definite filling defect to suggest choledocholithiasis. No intrahepatic biliary dilatation. GALLBLADDER: Multiple calculi within the gallbladder lumen. SPLEEN: Spleen is enlarged measuring 15.0 cm in craniocaudal dimension. PANCREAS: No focal masses or ductal dilatation. ADRENALS: No adrenal nodules. KIDNEYS/URETERS: Kidneys enhance symmetrically. No hydronephrosis. No cystic or solid mass lesions. No stones. GI TRACT: No abnormal distention, wall thickening, or evidence of bowel obstruction. LYMPH NODES: No lymphadenopathy. VESSELS: No aortic aneurysm dilatation. Further resolution limited due to lack of contrast. PERITONEUM / RETROPERITONEUM: Moderate volume ascites. BONES: No acute osseous abnormality. SOFT TISSUES: Mild diffuse anasarca. IMPRESSION: 1. Hepatic cirrhosis. Cannot evaluate for focal masses due to the lack of contrast, however, no mass is apparent within limitations. 2. Splenomegaly. 3. Moderate volume ascites. 4. Cholelithiasis. Moderate dilatation of the common bile duct without evidence of choledocholithiasis. Signed by: Dr. Leticia Nicole M.D. on 03/30/2017 3:57 PM
[2017-03-30 16:06] LABS: LYMPHOCYTES,BODY FLUID 67 %; MONO/MACROPHG,BODY FLUID 21 %; NEUTROPHILS,BODY FLUID 12 %
[2017-03-31] VITALS (9 sets, daily range): BP systolic 123–144; BP diastolic 52–68
--- NOTE | 2017-03-31 01:12 | Progress Note ---
DATE: PCP: Dr. Jeffy Choi MANAGEMENT SERVICES TECHNICIAN: Dr. Jh Lane, Dr. Hu Anderson CHIEF COMPLAINT: Cirrhosis, GI bleeding, pancytopenia, renal insufficiency. SUBJECTIVE: No new issues. Patient appears cachectic, weak. Continues with third spacing. Currently, patient is having paracentesis done at bedside by interventional radiology and ultrasound guided. MEDICATIONS: Please see MAR. OBJECTIVE: VITAL SIGNS: Temperature 99.2, pulse 98, blood pressure 140/62, respirations 18, satting 95% with O2. Weight 145. GENERAL: Patient is awake. LUNGS: With decreased breath sounds. HEENT: Extraocular muscles are intact. NECK: Supple. CARDIOVASCULAR: Regular rate and rhythm. ABDOMEN: Has now flattened. Has had almost 5700 mL of fluid drained. NECK: Supple. EXTREMITIES: With third spacing edema. Has multiple bruising. NEUROLOGICAL: Nonfocal. LABS: Sodium 140, potassium 3.4, chloride 110, CO2 20, BUN 37, creatinine 2.65, glucose 120. White count 3.56, hemoglobin 10.5, hematocrit 28.9, platelets 34,000. DIAGNOSES: 1. Pancytopenia and anemia. Hemoglobin and hematocrit are stable at this time. 2. Status post esophagogastroduodenoscopy. Continues to have mild esophagitis, small hiatal hernia, and gastritis. 3. Cirrhosis with ascites. Status post paracentesis done at bedside. Had 5700 plus fluid drained. Fluid was sent for cell count, culture, protein. 4. Diabetes mellitus type 2. Will continue on sliding scale. 5. Hypokalemia. Will continue to monitor patient. Should patient be hypotensive, patient will likely need albumin. Dictated by Marcellus Rose NP Job#: [id number]
[2017-03-31] MEDS: INSULIN REGULAR, HUMAN 100 UNIT/1 ML 3ML VIAL SQ SCH ×5 (07:27→21:00)
[2017-03-31 09:26] LABS: BASOPHILS % 0.3 % (0.0-1.0); EOSINOPHILS # (AUTO) 0.1 (0.0-0.4); EOSINOPHILS % 2.8 % (0.0-6.0); HEMOGLOBIN 9.5 g/dL (12.0-16.0); LYMPHOCYTES # (AUTO) 0.9 (1.0-3.2); LYMPHOCYTES % 29.5 % (18.0-39.1); MEAN CORPUSCULAR HEMOGLOBIN 31.7 pg (28-32); MEAN CORPUSCULAR HGB CONC 35.2 g/dL (31-35); MONOCYTES # (AUTO) 0.3 (0.2-0.8); MONOCYTES % 10.4 % (4.4-11.3); NEUTROPHILS # (AUTO) 1.6 (2.1-6.9); RED CELL DISTRIBUTION WIDTH 16.6 % (11.7-14.4)
[2017-03-31 09:32] LABS: PLATELET COUNT 26 x10e3/uL (140-360)
[2017-03-31] MEDS: SPIRONOLACTONE 25 MG TAB PO SCH (09:49)
[2017-03-31] MEDS: PANTOPRAZOLE 40 MG 10ML VIAL IV SCH ×2 (09:49→22:18)
[2017-03-31] MEDS: LACTULOSE SYRUP 20 GM/30 ML UDC PO SCH ×2 (09:49→16:43)
[2017-03-31] MEDS: MEGACE 400MG/ 10ML CUP PO SCH ×2 (09:49→16:43)
[2017-03-31] MEDS: NIFEDIPINE CR 30 MG TAB PO SCH (09:51)
[2017-03-31] MEDS: IRON SUCROSE 100 MG in SODIUM CHLORIDE 0.9% 100 ML 100 ML IV SCH (12:19)
[2017-04-01] VITALS (7 sets, daily range): BP systolic 123–135; BP diastolic 50–59
--- NOTE | 2017-04-01 02:04 | Progress Note ---
DATE: PCP: Dr. Jeffy Choi CONSULTING DOCTOR: Dr. hJ Lane, Dr. Hu Anderson CHIEF COMPLAINT: Cirrhosis, GI bleeding, pancytopenia, renal insufficiency. SUBJECTIVE: No new issues. Patient weak. Per nursing staff, patient is refusing to do or participate in physical therapy. Patient's son, Orlando and Kay, daughter are at bedside. I spoke with them at length about possible hospice, patient's prognosis, patient's paracentesis that was done yesterday with fluid extraction. MEDICATIONS: Please see MAR. OBJECTIVE: VITAL SIGNS: Temperature 98.8, pulse 64, blood pressure 140/68. GENERAL: Patient is awake, alert. Patient is nonverbal today. NECK: Supple. EXTREMITIES: No calf tenderness. LUNGS: With decreased breath sounds. CARDIOVASCULAR: Regular rate and rhythm. NEUROLOGICAL: Nonfocal. HEENT: Extraocular muscles are intact. ABDOMEN: Today, bowel sounds are present, increased bowel sounds. It is nontender. Continues to have a little bit of distention. DIAGNOSES: 1. Pancytopenia and anemia. Will continue to monitor basic metabolic profile. 2. Status post esophagogastroduodenoscopy, showed mild esophagitis, small hiatal hernia, and gastritis, which the family has been made aware on day-to-day basis. 3. Cirrhosis with ascites. Status post paracentesis done yesterday. Again discussed with family members about the cirrhosis and ascites, and son Orlando, and Kay agreed to talk to hospice today. I communicated this to briefcase sewer, Renee and will try to get a Khmer speaking hospitalist who can talk to the family. 4. Hypertension. Will continue to monitor blood pressure, currently stable. 5. Diabetes mellitus type 2. Continue on sliding scale. Dictated by Marcellus Rose NP Job#: [id number]
[2017-04-01] MEDS: INSULIN REGULAR, HUMAN 100 UNIT/1 ML 3ML VIAL SQ SCH ×5 (07:30→21:00)
--- NOTE | 2017-04-01 09:07 | Progress Note ---
DATE: April 01, 2017 Patient was seen and examined today. Patient appeared comfortable. No worsening. Her clinical condition is stable. Headache continues. PHYSICAL EXAMINATION GENERAL: Alert, awake and communicative. HEENT: Normocephalic and atraumatic. Sclerae pink. Conjunctivae clear. NECK: Supple. CHEST: Clear to auscultation. ABDOMEN: Soft and distended. EXTREMITIES: No edema. LABS AND IMAGING: Reviewed. ASSESSMENT AND PLAN: The patient with a history of chronic liver disease, liver cirrhosis, portal hypertension, pancytopenia, and anemia. No evidence of any bleeding clinically. Cannot schedule procedure. Recommendation is follow up CBC today. Continue close observation. Diabetes. Continue glucose monitoring. Continue remaining care. Will follow the patient. Job#: [id number] GABBY
[2017-04-01] MEDS: MEGACE 400MG/ 10ML CUP PO SCH ×2 (09:58→16:35)
[2017-04-01] MEDS: PANTOPRAZOLE 40 MG 10ML VIAL IV SCH ×2 (09:58→20:08)
[2017-04-01] MEDS: LACTULOSE SYRUP 20 GM/30 ML UDC PO SCH ×2 (09:58→16:35)
[2017-04-01] MEDS: SPIRONOLACTONE 25 MG TAB PO SCH (09:58)
[2017-04-01] MEDS: NIFEDIPINE CR 30 MG TAB PO SCH (09:59)
[2017-04-01 10:30] LABS: BASOPHILS % 0.5 % (0.0-1.0); EOSINOPHILS # (AUTO) 0.1 (0.0-0.4); EOSINOPHILS % 2.6 % (0.0-6.0); HEMATOCRIT 29.3 % (34.2-44.1); HEMOGLOBIN 10.5 g/dL (12.0-16.0); LYMPHOCYTES # (AUTO) 1.1 (1.0-3.2); LYMPHOCYTES % 27.6 % (18.0-39.1); MEAN CORPUSCULAR HEMOGLOBIN 31.8 pg (28-32); MEAN CORPUSCULAR HGB CONC 35.8 g/dL (31-35); MEAN CORPUSCULAR VOLUME 88.8 fL (81-99); MONOCYTES # (AUTO) 0.4 (0.2-0.8); MONOCYTES % 10.6 % (4.4-11.3); NEUTROPHILS # (AUTO) 2.3 (2.1-6.9); NEUTROPHILS % 58.4 % (38.7-80.0); RED CELL DISTRIBUTION WIDTH 15.9 % (11.7-14.4)
[2017-04-01 10:45] LABS: PLATELET COUNT 29 x10e3/uL (140-360)
[2017-04-01] MEDS: IRON SUCROSE 100 MG in SODIUM CHLORIDE 0.9% 100 ML 100 ML IV SCH (12:17)
[2017-04-01 13:54] LABS: CALCIUM 8.1 mg/dL (8.4-10.2); CREATININE, SERUM 2.03 mg/dL (0.57-1.11)
[2017-04-01] MEDS ORDERED: POTASSIUM CHL IV ONE (19:30)
[2017-04-01] MEDS ORDERED: SODIUM CHLORIDE 0.9% IV ONE (19:30)
[2017-04-02 06:27] LABS: BASOPHILS % 0.6 % (0.0-1.0); EOSINOPHILS # (AUTO) 0.1 (0.0-0.4); EOSINOPHILS % 2.6 % (0.0-6.0); HEMATOCRIT 27.6 % (34.2-44.1); HEMOGLOBIN 9.9 g/dL (12.0-16.0); LYMPHOCYTES # (AUTO) 1.2 (1.0-3.2); LYMPHOCYTES % 26.3 % (18.0-39.1); MEAN CORPUSCULAR HEMOGLOBIN 31.6 pg (28-32); MEAN CORPUSCULAR HGB CONC 35.9 g/dL (31-35); MEAN CORPUSCULAR VOLUME 88.2 fL (81-99); MONOCYTES # (AUTO) 0.4 (0.2-0.8); MONOCYTES % 9.2 % (4.4-11.3); NEUTROPHILS # (AUTO) 2.8 (2.1-6.9); NEUTROPHILS % 60.9 % (38.7-80.0); RED BLOOD COUNT 3.13 x10e6/uL (3.6-5.1); RED CELL DISTRIBUTION WIDTH 15.9 % (11.7-14.4)
[2017-04-02 06:39] LABS: PLATELET COUNT 39 x10e3/uL (140-360)
[2017-04-02 06:45] LABS: ANION GAP 11.9 mmol/L (8-16); CALCIUM 8.1 mg/dL (8.4-10.2); CREATININE, SERUM 2.12 mg/dL (0.57-1.11); POTASSIUM 3.9 mmol/L (3.5-5.1)
[2017-04-02] MEDS: INSULIN REGULAR, HUMAN 100 UNIT/1 ML 3ML VIAL SQ SCH ×4 (07:30→21:00)
[2017-04-02 07:45] VITALS: BP 121/61
[2017-04-02] MEDS: MEGACE 400MG/ 10ML CUP PO SCH ×2 (08:39→17:27)
[2017-04-02] MEDS: NIFEDIPINE CR 30 MG TAB PO SCH (08:39)
[2017-04-02] MEDS: LACTULOSE SYRUP 20 GM/30 ML UDC PO SCH ×2 (08:39→17:27)
[2017-04-02] MEDS: SPIRONOLACTONE 25 MG TAB PO SCH (08:39)
[2017-04-02] MEDS: PANTOPRAZOLE 40 MG 10ML VIAL IV SCH ×2 (08:39→21:57)
[2017-04-02] MEDS ORDERED: DEXTROSE 50% SYRINGE 50 ML IV PRN (12:15)
[2017-04-02] MEDS: IRON SUCROSE 100 MG in SODIUM CHLORIDE 0.9% 100 ML 100 ML IV SCH (12:19)
[2017-04-02 12:33] VITALS: BP 121/61
[2017-04-02 13:49] VITALS: BP 126/55
[2017-04-02 17:00] VITALS: BP 126/52
[2017-04-02 20:00] VITALS: BP 122/49
[2017-04-03] VITALS: BP 122/51
[2017-04-03 05:00] VITALS: BP 124/53
[2017-04-03] MEDS: INSULIN REGULAR, HUMAN 100 UNIT/1 ML 3ML VIAL SQ SCH ×4 (07:30→21:42)
[2017-04-03 08:00] VITALS: BP_SYST 126; BP_SYST 129; BP_DIAS 52; BP_DIAS 73
[2017-04-03] MEDS: LACTULOSE SYRUP 20 GM/30 ML UDC PO SCH ×2 (09:00→17:29)
[2017-04-03] MEDS: PANTOPRAZOLE 40 MG 10ML VIAL IV SCH ×2 (09:29→21:36)
[2017-04-03] MEDS: SPIRONOLACTONE 25 MG TAB PO SCH (09:29)
[2017-04-03] MEDS: MEGACE 400MG/ 10ML CUP PO SCH ×2 (09:29→17:29)
[2017-04-03] MEDS: NIFEDIPINE CR 30 MG TAB PO SCH (09:30)
[2017-04-03] MEDS: IRON SUCROSE 100 MG in SODIUM CHLORIDE 0.9% 100 ML 100 ML IV SCH (12:00)
[2017-04-03] MEDS ORDERED: SODIUM CHLORIDE 0.9% 250ML 250 ML ONE (13:14)
[2017-04-03 14:19] VITALS: BP 129/52
[2017-04-03 16:16] VITALS: BP 126/52
[2017-04-03 20:00] VITALS: BP 129/59
[2017-04-04 04:00] VITALS: BP 104/90
[2017-04-04] MEDS: INSULIN REGULAR, HUMAN 100 UNIT/1 ML 3ML VIAL SQ SCH ×4 (07:30→21:44)
[2017-04-04] MEDS: MEGACE 400MG/ 10ML CUP PO SCH ×2 (07:42→17:56)
[2017-04-04 08:00] VITALS: BP 123/52
[2017-04-04 08:54] LABS: BASOPHILS % 0.3 % (0.0-1.0); EOSINOPHILS # (AUTO) 0.1 (0.0-0.4); EOSINOPHILS % 2.1 % (0.0-6.0); HEMATOCRIT 25.3 % (34.2-44.1); HEMOGLOBIN 9.1 g/dL (12.0-16.0); LYMPHOCYTES % 24.7 % (18.0-39.1); MEAN CORPUSCULAR HEMOGLOBIN 31.9 pg (28-32); MEAN CORPUSCULAR VOLUME 88.8 fL (81-99); MONOCYTES # (AUTO) 0.3 (0.2-0.8); MONOCYTES % 8.9 % (4.4-11.3); NEUTROPHILS # (AUTO) 2.4 (2.1-6.9); NEUTROPHILS % 63.2 % (38.7-80.0); RED BLOOD COUNT 2.85 x10e6/uL (3.6-5.1); RED CELL DISTRIBUTION WIDTH 15.8 % (11.7-14.4)
[2017-04-04 08:56] LABS: PLATELET COUNT 35 x10e3/uL (140-360)
[2017-04-04 09:00] VITALS: BP 123/52
[2017-04-04] MEDS: NIFEDIPINE CR 30 MG TAB PO SCH (09:31)
[2017-04-04] MEDS: LACTULOSE SYRUP 20 GM/30 ML UDC PO SCH ×2 (09:31→17:56)
[2017-04-04] MEDS: SPIRONOLACTONE 25 MG TAB PO SCH (09:31)
[2017-04-04] MEDS: PANTOPRAZOLE 40 MG 10ML VIAL IV SCH ×2 (09:31→21:43)
[2017-04-04 16:00] VITALS: BP 124/55
[2017-04-04 20:00] VITALS: BP 122/62
[2017-04-04 20:15] VITALS: BP 122/62
[2017-04-05] VITALS (8 sets, daily range): BP systolic 122–135; BP diastolic 52–62
[2017-04-05] MEDS: INSULIN REGULAR, HUMAN 100 UNIT/1 ML 3ML VIAL SQ SCH ×3 (07:30→16:50)
[2017-04-05] MEDS: MEGACE 400MG/ 10ML CUP PO SCH ×2 (08:31→16:46)
[2017-04-05] MEDS: NIFEDIPINE CR 30 MG TAB PO SCH (08:31)
[2017-04-05] MEDS: LACTULOSE SYRUP 20 GM/30 ML UDC PO SCH ×2 (08:31→16:46)
[2017-04-05] MEDS: PANTOPRAZOLE 40 MG 10ML VIAL IV SCH (08:31)
[2017-04-05] MEDS: SPIRONOLACTONE 25 MG TAB PO SCH (08:31)
--- NOTE | 2017-04-05 18:17 | Discharge Summary ---
PERTINENT HISTORY AND PHYSICAL FINDINGS/HISTORY OF PRESENT ILLNESS: Mrs. Rose is a 77-year-old female with a past medical history of chronic liver disease associated with portal hypertension, anemia and persistent thrombocytopenia. She was admitted due to generalized weakness and melena. At admission, the patient had a hemoglobin of 8.8. She felt fatigued, lethargic and tired. She had persistent anemia and thrombocytopenia during her hospital stay. She was also coagulopathic. ALLERGIES: SHE HAS NO KNOWN DRUG ALLERGIES. Apparently, the patient went to the clinic 3 days prior to admission, and was called informing her that she was anemic. The long-standing cirrhosis is of unknown etiology. PAST MEDICAL HISTORY: Type 2 diabetes mellitus, hypertension, and cirrhosis. ADMITTING DIAGNOSES 1. Pancytopenia and anemia. 2. Upper gastrointestinal bleed. 3. Cirrhosis with ascites. 4. Hypertension. 5. Type 2 diabetes mellitus. 6. Urinary tract infection. DISCHARGE DIAGNOSES 1. Pancytopenia and anemia. 2. Upper gastrointestinal bleed. 3. Cirrhosis with ascites. 4. Hypertension. 5. Type 2 diabetes mellitus. 6. Urinary tract infection. PERTINENT DIAGNOSTIC STUDIES: Chest x-ray showed a small left pleural effusion and basilar atelectasis. CT scan of the abdomen showed cirrhosis, portal hypertension and moderate ascites. Urinalysis was positive for 2+ leukocyte esterase, 11-20 white cells and 6-10 red cells. Fecal occult blood test was positive. Lactic acid 11.7 which was normal. Magnesium low at 1.4. Ammonia level 69 and slightly elevated. Troponin was 0.016 and 0.015. B-type naturetic peptide 168.8. CBC showed a white blood cell count of 2.9 with 60% neutrophils and 24% lymphocytes. Hemoglobin 8.8, hematocrit 24.8 and platelet count 55,000. Chemistry on admission had shown a sodium level of 131, potassium 4.3, chloride 103, CO2 19, glucose 149, creatinine 3.29, BUN 38, and a GFR of 14. Calcium 8.5. Pro time 18.2 with an INR of 1.43. PTT 35.4 and transaminases and bilirubin slightly elevated at 2.9. AST slightly elevated at 31, ALT 9, alkaline phosphatase 85. Dr. Lane with hematology/oncology and Dr. Anderson with gastroenterology were consulted. Per documentation from the rotary drier, there was no evidence of rebleeding. Ultrasound of the liver was negative for masses. Hepatitis profile was negative. VIJAY negative. Per hematology consultation note, recommendation was for 1 unit of packed RBCs, 1 unit of platelet transfusion, monitoring of coagulation profile. INR was 1.43 at admission. Iron transfusions. The patient's upper GI endoscopy showed mild distal gastroesophagitis with no active bleeding. The discharge plan is for home with home Hospice. The patient is to continue an ADA diet. Activity as tolerated. Per the patient's family's wishes, she will be under the care of [facility]. We have been awaiting the delivery of a hospital bed and DME, which were out today. Per the nurse who spoke with the Hospice staff, and they indicated that they would not need the left upper extremity PICC line for home IV pain medications. Therefore, it will be removed prior to her discharge. DICTATED BY PENELOPE DAO NP TERESA KELLY MD Job#: [id number] [place]
== END 2017-04-05 19:37 | disposition hospice, home (50) | DRG 809 ==
LOC: ER 18:25 → ERHOLD 23:34 → EDBEDREQSVC 03-24 18:35 → IMCU 03-24 23:51
PROVIDERS: ADMIT Internal Medicine; ATTEND Internal Medicine
PROC: 30243K1 Transfusion of Nonautologous Frozen Plasma into Central Vein, Percutaneous Approach (ICD-10-PCS; principal; 2017-03-23)
PROC: 30243N1 Transfusion of Nonautologous Red Blood Cells into Central Vein, Percutaneous Approach (ICD-10-PCS; 2017-03-24)
PROC: 30243R1 Transfusion of Nonautologous Platelets into Central Vein, Percutaneous Approach (ICD-10-PCS; 2017-03-25)
PROC: 0DB78ZX Excision of Stomach, Pylorus, Via Natural or Artificial Opening Endoscopic, Diagnostic (ICD-10-PCS; 2017-03-26)
PROC: 0W9G3ZX Drainage of Peritoneal Cavity, Percutaneous Approach, Diagnostic (ICD-10-PCS; 2017-03-30)
DX: D61.818 Other pancytopenia (principal); R18.8 Other ascites; K76.6 Portal hypertension; E11.22 Type 2 diabetes mellitus with diabetic chronic kidney disease; N18.4 Chronic kidney disease, stage 4 (severe); N17.9 Acute kidney failure, unspecified; E83.42 Hypomagnesemia; G40.909 Epilepsy, unspecified, not intractable, without status epilepticus; N39.0 Urinary tract infection, site not specified; K92.1 Melena; K74.60 Unspecified cirrhosis of liver; K31.89 Other diseases of stomach and duodenum; K20.9 Esophagitis, unspecified; K29.70 Gastritis, unspecified, without bleeding; K44.9 Diaphragmatic hernia without obstruction or gangrene; I12.9 Hypertensive chronic kidney disease with stage 1 through stage 4 chronic kidney disease, or unspecified chronic kidney disease; Z51.5 Encounter for palliative care; E87.6 Hypokalemia; Z79.4 Long term (current) use of insulin
CPT/HCPCS: 36415; 36430; 43239; 49083; 71045; 74176; 74181; 74250; 74470; 76700; 80048; 80053; 81001; 82105; 82140; 82270; 82550; 82553; 82728; 82948; 83540; 83605; 83735; 83880; 84100; 84134; 84157; 84443; 84466; 84484; 85025; 85610; 85730; 86039; 86255; 86850; 86900; 86920; 87040; 87070; 87086; 87205; 88112; 88305; 88312; 89051; 93005; 96361; 96372; 99284; J0696; J1450; J1756; J1940; J2001; J2353; J2354; J2405; J3430; J3480; J7030; J7040; J7050; P9016; P9017; P9034

== ENCOUNTER → 2017-03-23 | Outpatient (CLI) | payer OTHER ==
[2017-03-23 17:33] LABS: BASOPHILS % 0.2 % (0.0-1.0); EOSINOPHILS % 0.3 % (0.0-6.0); HEMOGLOBIN 6.6 g/dL (12.0-16.0); LYMPHOCYTES # (AUTO) 1.6 (1.0-3.2); LYMPHOCYTES % 16.3 % (18.0-39.1); MEAN CORPUSCULAR HEMOGLOBIN 29.6 pg (28-32); MEAN CORPUSCULAR HGB CONC 31.6 g/dL (31-35); MEAN CORPUSCULAR VOLUME 93.7 fL (81-99); MONOCYTES # (AUTO) 0.8 (0.2-0.8); MONOCYTES % 7.7 % (4.4-11.3); NEUTROPHILS # (AUTO) 7.3 (2.1-6.9); NEUTROPHILS % 74.1 % (38.7-80.0); PLATELET COUNT 122 x10e3/uL (140-360); RED BLOOD COUNT 2.23 x10e6/uL (3.6-5.1); RED CELL DISTRIBUTION WIDTH 17.3 % (11.7-14.4)
[2017-03-23 17:34] LABS: BAND NEUTROPHILS % (MANUAL) 14 %; HEMATOCRIT 20.9 % (34.2-44.1); HYPOCHROMASIA MODERATE; LYMPHOCYTES % (MANUAL) 14 % (19-48); MONOCYTES % (MANUAL) 4 % (3.4-9.0); NEUTROPHILS % (MANUAL) 68 % (40-74)
[2017-03-23 17:35] LABS: ANISOCYTOSIS SLIGHT; PLATELET ESTIMATE SLIGHTLY DECREASED; PLATELET MORPHOLOGY COMMENT NORMAL; RBC MORPHOLOGY COMMENT NORMAL
== END ==
LOC: NPA 11:30
PROVIDERS: ATTEND Internal Medicine
DX: Z02.9 Encounter for administrative examinations, unspecified (principal)
CPT/HCPCS: 36415; 82948; 85025